=== PATIENT | female | born 1995 | race Caucasian/White ===

== ENCOUNTER 2018-05-12 14:40 | Emergency (ER) | payer OTHER ==
[2018-05-12 16:20] LABS: Urine Bacteria 20-50 /HPF (<20); Urine Culture Reflex Order REFLEXED; Urine Mucus 1+ /HPF (NONE SEEN); Urine RBC <5 /HPF (NONE SEEN)
--- NOTE | 2018-05-12 16:31 | RAD REPORT ---
EXAM DESCRIPTION: US - Transvaginal OB - 05/12/2018 4:24 pm CLINICAL HISTORY: ABD CRAMPING, COMPARISON: No comparisons FINDINGS: A single gestational sac is seen within the uterus. The shape of the sac is within normal limits for gestational age. Within the sac is a single pole with crown-rump length of 9 mm, cor relating to estimated gestational age of 7 weeks 0 days. Estimated date of delivery is 12/29/2018. Heart rate is 166 BPM. The placenta is not yet developed due to early gestational age. The maternal adnexa and ovaries are within normal limits. Normal Doppler blood flow was demonstrated to both ovaries. IMPRESSION: Single live early intrauterine gestation with estimated gestational age of 7 weeks 0 day s, RACHEL 12/29/2018. No unusual or unexpected finding.
[2018-05-12 16:53] LABS: Urine Blood NEGATIVE (NEG); Urine Glucose NEGATIVE (NEG); Urine Protein 1+ (NEG)
--- NOTE | 2018-05-12 17:11 | EDPHYS ---
Physician Documentation [facility] Name: Ramone Quintero Age: 22 yrs Sex: Female : 1995 Arrival Date: 05/12/2018 Time: 14:43 Bed 16 Private MD: ED Physician Sincere Romero HPI: 05/12 19:49 This 22 yrs old Female presents to ER via Ambulatory with complaints of gs Abdominal Pain, unknown wks . 19:49 The patient presents with pelvic pain. Onset: The symptoms/episode began/occurred 2 gs day(s) ago, and became persistent. Modifying factors: The symptoms are alleviated by nothing, the symptoms are aggravated by urinating. Associated signs and symptoms: Pertinent positives: vomiting, Pertinent negatives: fever. Severity of symptoms: At their worst the symptoms were moderate, in the emergency department the symptoms are unchanged. The patient has experienced similar episodes in the past, a few times. 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 - Social history:: Smoking status: Patient/guardian denies using tobacco. - Ebola Screening: : No symptoms or risks identified at this time. ROS: 19:49 All other systems are negative. gs Exam: 19:49 Head/Face: Normocephalic, atraumatic. Eyes: Pupils equal round and reactive to light, gs extra-ocular motions intact. Lids and lashes normal. Conjunctiva and sclera are non-icteric and not injected. Cornea within normal limits. Periorbital areas with no swelling, redness, or edema. ENT: Nares patent. No nasal discharge, no septal abnormalities noted. Tympanic membranes are normal and external auditory canals are clear. Oropharynx with no redness, swelling, or masses, exudates, or evidence of obstruction, uvula midline. Mucous membranes moist. Neck: Trachea midline, no thyromegaly or masses palpated, and no cervical lymphadenopathy. Supple, full range of motion without nuchal rigidity, or vertebral point tenderness. No Meningismus. Chest/axilla: Normal chest wall appearance and motion. Nontender with no deformity. No lesions are appreciated. Cardiovascular: Regular rate and rhythm with a normal S1 and S2. No gallops, murmurs, or rubs. Normal PMI, no JVD. No pulse deficits. Respiratory: Lungs have equal breath sounds bilaterally, clear to auscultation and percussion. No rales, rhonchi or wheezes noted. No increased work of breathing, no retractions or nasal flaring. Abdomen/GI: Soft, non-tender, with normal bowel sounds. No distension or tympany. No guarding or rebound. No evidence of tenderness throughout. Skin: Warm, dry with normal turgor. Normal color with no rashes, no lesions, and no evidence of cellulitis. MS/ Extremity: Pulses equal, no cyanosis. Neurovascular intact. Full, normal range of motion. Neuro: Awake and alert, GCS 15, oriented to person, place, time, and situation. Cranial nerves II-XII grossly intact. Motor strength 5/5 in all extremities. Sensory grossly intact. Cerebellar exam normal. Normal gait. 19:49 Constitutional: The patient appears alert, awake. 19:49 Back: No spinal tenderness. No costovertebral tenderness. Full range of motion. Vital Signs: 15:00 BP 120 / 73; Pulse 89; Resp 16 S; Temp 98.4(O); Pulse Ox 98% on R/A; Weight 62.14 kg aa5 (R); Height 5 ft. 5 in. (165.10 cm) (R); 16:54 BP 122 / 70; Pulse 78; Resp 16; Temp 98.2(O); Pulse Ox 98% on R/A; Pain 3/10; ls4 15:00 Body Mass Index 22.80 (62.14 kg, 165.10 cm) aa5 MDM: 15:27 Patient medically screened. gs 19:49 Differential diagnosis: ectopic , urinary tract infection. Data reviewed: vital signs, nurses notes. Counseling: I had a detailed discussion with the patient and/or guardian regarding: the historical points, exam findings, and any diagnostic results supporting the discharge/admit diagnosis, lab results, radiology results. Response to treatment: the patient's symptoms have markedly improved after treatment, and as a result, I will discharge patient. 05/12 15:05 Order name: Urine Microscopic Only; Complete Time: 16:39 05/12 15:30 Order name: Urine Dipstick--Ancillary (enter results); Complete Time: 19:50 bd 05/12 15:30 Order name: Urine --Ancillary (enter results); Complete Time: 19:50 bd 05/12 15:52 Order name: US Transvaginal Ob; Complete Time: 16:39 05/12 16:23 Order name: Urine Culture [facility] 05/12 15:05 Order name: Urine Test (obtain specimen); Complete Time: 15:27 gs 05/12 15:05 Order name: Urine Dipstick-Ancillary (obtain specimen); Complete Time: 15:27 Administered Medications: 16:54 Not Given (Patient Refused): D5-NS 1000 ml IV at bolus bolus ls4 Disposition: 05/12/18 17:11 Discharged to Home. Impression: Cystitis. - Condition is Stable. - Discharge Instructions: Urinary Tract Infection, Adult. - Prescriptions for Keflex 500 mg Oral Capsule - take 1 capsule by ORAL route every 12 hours for 7 days; 14 capsule. Zofran 4 mg Oral Tablet - take 1 tablet by ORAL route every 12 hours As needed; 20 tablet. - Medication Reconciliation Form, Thank You Letter, Antibiotic Education, Prescription Opioid Use form. - Follow up: Private Physician; When: 1 - 2 days; Reason: Re-evaluation by your physician. Signatures: Dispatcher [employer] [facility] Chantel Khalil RN RN aa5 Sincere Romero MD MD Luann Manuel RN RN ls4 Corrections: (The following items were deleted from the chart) 17:27 17:11 05/12/2018 17:11 Discharged to Home. Impression: Cystitis. Condition is Stable. ls4 Forms are Medication Reconciliation Form, Thank You Letter, Antibiotic Education, Prescription Opioid Use. Follow up: Private Physician; When: 1 - 2 days; Reason: Re-evaluation by your physician. gs
--- NOTE | 2018-05-12 17:11 | ER ---
Nurse's Notes [facility] Name: Ramone Quintero Age: 22 yrs Sex: Female : 1995 Arrival Date: 05/12/2018 Time: 14:43 Bed 16 Private MD: Diagnosis: Cystitis Presentation: 05/12 14:58 Presenting complaint: Patient states: "I found out I was about 3 weeks ago and aa5 my first OB appointment is not until but I started having some lower back pain and lower abdominal pain". Pt also c/o nausea and vomiting, denies vaginal bleeding. Transition of care: patient was not received from another setting of care. Onset of symptoms was May 2018. Risk Assessment: Do you want to hurt yourself or someone else? Patient reports no desire to harm self or others. Initial Sepsis Screen: Does the patient meet any 2 criteria? No. Patient's initial sepsis screen is negative. Does the patient have a suspected source of infection? No. Patient's initial sepsis screen is negative. Care prior to arrival: None. 14:58 Method Of Arrival: Ambulatory aa5 14:58 Acuity: MADELAINE 3 aa5 Triage Assessment: 15:39 General: Appears in no apparent distress. comfortable, Behavior is calm, cooperative. ls4 Pain: Complains of pain in abdomen Pain currently is 3 out of 10 on a pain scale. GI: Abdomen is flat, non-distended, Bowel sounds present X 4 quads. Abd is soft and non tender. 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 - Social history:: Smoking status: Patient/guardian denies using tobacco. - Ebola Screening: : No symptoms or risks identified at this time. Screenin:41 Abuse screen: Denies threats or abuse. Denies injuries from another. Nutritional ls4 screening: No deficits noted. Tuberculosis screening: No symptoms or risk factors identified. Fall Risk None identified. Assessment: 17:25 General: Appears in no apparent distress. Behavior is calm, cooperative. Pain: Denies ls4 pain. Neuro: No deficits noted. Cardiovascular: No deficits noted. Respiratory: No deficits noted. GI: Reports cramps and low back pain. : No deficits noted. Musculoskeletal: No deficits noted. Vital Signs: 15:00 BP 120 / 73; Pulse 89; Resp 16 S; Temp 98.4(O); Pulse Ox 98% on R/A; Weight 62.14 kg aa5 (R); Height 5 ft. 5 in. (165.10 cm) (R); 16:54 BP 122 / 70; Pulse 78; Resp 16; Temp 98.2(O); Pulse Ox 98% on R/A; Pain 3/10; ls4 15:00 Body Mass Index 22.80 (62.14 kg, 165.10 cm) aa5 ED Course: 14:43 Patient arrived in ED. mr 14:59 Triage completed. aa5 15:00 Arm band placed on. aa 15:04 Sincere Romero MD is Attending Physician. 15:07 Luann Manuel, RN is Primary Nurse. ls4 15:41 Patient has correct armband on for positive identification. Bed in low position. Call ls4 light in reach. Side rails up X 1. 15:41 No provider procedures requiring assistance completed. Patient did not have IV access ls4 during this emergency room visit. 16:24 US Transvaginal Ob In Process Unspecified. EDMS Administered Medications: 16:54 Not Given (Patient Refused): D5-NS 1000 ml IV at bolus bolus ls4 Outcome: 17:11 Discharge ordered by . 17:25 Discharged to home ambulatory. ls4 17:25 Condition: stable 17:25 Discharge instructions given to patient, family, Instructed on discharge instructions, follow up and referral plans. medication usage, Demonstrated understanding of instructions, follow-up care, medications, Prescriptions given X 2. 17:27 Patient left the ED. ls4 Signatures: Dispatcher [employer] [facility] Brianna Sheldon RemiChantel, RN RN aa Sincere Romero MD MD Luann Manuel, NORM RN ls4
== END 2018-05-12 17:27 | disposition home or self-care (01) ==
LOC: ER 14:40
DX: O23.11 Infections of bladder in pregnancy, first trimester (principal); N30.90 Cystitis, unspecified without hematuria; Z3A.01 Less than 8 weeks gestation of pregnancy
CPT/HCPCS: 76817; 81003; 81015; 81025; 87086; 87088; 99283

== ENCOUNTER 2021-08-26 08:40 | Emergency (ER) | payer OTHER ==
--- OUTSIDE RECORDS SUMMARY | 2021-08-26 08:44 | XMS REPORT | Continuity of Care Document ---
:1995 Author Organization [facility] t Address [address] [place] [address] Dr. Ravi [address] [place] [id number] Care Team Providers Name Role Phone Unavailable Unavailable Unavailable Problems This patient has no known problems. Allergies, Adverse Reactions, Alerts This patient has no known allergies or adverse reactions. Medications This patient has no known medications. Procedures This patient has no known procedures. Encounters Start End Encounter Admission Attending Care Care Encounter Source Date/Time Date/Time Type Type Clinicians Facility Department ID 2018-12-04 Inpatient [id number] [facility] 09:01:00 2018-08-07 2018-08-07 Outpatient [id number] [facility] 09:00:00 09:00:00 2018-06-19 2018-06-19 Outpatient [id number] [facility] 13:00:00 13:00:00 Results This patient has no known results.
--- NOTE | 2021-08-26 08:56 | ER ---
Nurse's Notes [facility] Name: Ramone Quintero Age: 25 yrs Sex: Female : 1995 Arrival Date: 08/26/2021 Time: 08:43 Bed Waiting Private MD: Diagnosis: Otitis media, unspecified, left ear;Acute sinusitis, unspecified Presentation: 08/26 08:52 Chief complaint: Patient states: L ear pain that began yesterday. Pt reports she has ss had cough/ congestion for the past few days. Tested negative for COVID twice since being ill. Coronavirus screen: Client denies travel out of the [place] in the last 14 days. Ebola Screen: Patient denies exposure to infectious person. Patient denies travel to an Ebola-affected area in the 21 days before illness onset. Initial Sepsis Screen: Does the patient meet any 2 criteria? No. Patient's initial sepsis screen is negative. Does the patient have a suspected source of infection? No. Patient's initial sepsis screen is negative. Risk Assessment: Do you want to hurt yourself or someone else? Patient reports no desire to harm self or others. Onset of symptoms was August 25, 2021. 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 - Social history:: Smoking status: Patient denies any tobacco usage or history of. Screenin:56 Abuse screen: Denies threats or abuse. Denies injuries from another. Nutritional ss screening: No deficits noted. Tuberculosis screening: Never had TB. Fall Risk None identified. Assessment: 08:56 General: Appears uncomfortable, Behavior is calm, cooperative. Pain: Complains of pain ss in left ear Pain currently is 9 out of 10 on a pain scale. Neuro: Farias Agitation-Sedation Scale (RASS): 0 - Alert and Calm Level of Consciousness is awake, alert, obeys commands, Oriented to person, place, time, situation. Cardiovascular: Capillary refill < 3 seconds is brisk in bilateral fingers. Respiratory: Airway is patent Respiratory effort is even, unlabored, Respiratory pattern is regular, symmetrical. Respiratory: Reports cough that is. EENT: Nares are clear. Derm: Skin is intact, is healthy with good turgor, Skin is dry, Skin is pink, warm \T\ dry. normal. Musculoskeletal: Circulation, motion, and sensation intact. Range of motion: intact in all extremities, Swelling absent. 08:57 Reassessment: Patient is alert, oriented x 3, equal unlabored respirations, skin aa5 warm/dry/pink. Vital Signs: 08:52 BP 133 / 84; Pulse 103; Resp 14; Temp 99.2(TE); Pulse Ox 100% on R/A; ss 08:54 Weight 79.38 kg; Pain 10/10; ss ED Course: 08:43 Patient arrived in ED. mr 08:47 Lisa Hess FNP-C [facility]. kb 08:47 Mignon Topete MD is Attending Physician. kb 08:53 Triage completed. ss 08:54 Arm band placed on right wrist. ss 08:56 Jessica Kilgore, NORM is Primary Nurse. ss 08:56 Patient has correct armband on for positive identification. Bed in low position. Call ss light in reach. 09:00 No provider procedures requiring assistance completed. Patient did not have IV access aa5 during this emergency room visit. Administered Medications: No medications were administered Medication: 08:56 VIS not applicable for this client. ss Outcome: 08:55 Discharge ordered by MD. kb 08:57 Discharged to home ambulatory. aa5 08:57 Condition: stable 08:57 Discharge instructions given to patient, Instructed on discharge instructions, follow up and referral plans. medication usage, Demonstrated understanding of instructions, follow-up care, medications, Prescriptions given X 1. 09:00 Patient left the ED. aa5 Signatures: Lisa Hess FNP-C FNP-Ckb Brianna Sheldon, NORM Golden RN aa5 Jessica Kilgore, NORM RN ss
--- NOTE | 2021-08-26 08:56 | EDPHYS ---
Physician Documentation [facility] Name: Ramone Quintero Age: 25 yrs Sex: Female : 1995 Arrival Date: 08/26/2021 Time: 08:43 Bed Waiting Private MD: ED Physician Mignon Topete HPI: 08/26 09:15 This 25 yrs old Female presents to ER via Ambulatory with complaints of Ear Pain, kb Fever, Cough, Nausea. 09:15 The patient presents with drainage, a fullness, pain. The complaints affect the left kb ear. Onset: The symptoms/episode began/occurred 3 day(s) ago. Modifying factors: The symptoms are alleviated by nothing, the symptoms are aggravated by nothing. Associated signs and symptoms: Pertinent positives: fever, cough, rhinorrhea. Severity of symptoms: At their worst the symptoms were moderate in the emergency department the symptoms are unchanged. The patient has not experienced similar symptoms in the past. The patient has not recently seen a physician. Pt states she has had cough, congestion, sinus pressure, runny nose, fever and ear pain. States she is only here to have her ear looked at. . 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 - Social history:: Smoking status: Patient denies any tobacco usage or history of. ROS: 09:14 Cardiovascular: Negative for chest pain, palpitations, and edema. kb 09:14 Constitutional: Positive for fever, malaise. 09:14 ENT: Positive for drainage from ear(s), ear pain, rhinorrhea, sinus congestion. 09:14 Respiratory: Positive for cough. 09:14 All other systems are negative. Exam: 09:14 Constitutional: This is a well developed, well nourished patient who is awake, alert, kb and in no acute distress. Head/Face: Normocephalic, atraumatic. Cardiovascular: Regular rate and rhythm with a normal S1 and S2. No gallops, murmurs, or rubs. No pulse deficits. Respiratory: Respirations even and unlabored. No increased work of breathing. Talking in full sentences Skin: Warm, dry with normal turgor. Normal color. MS/ Extremity: Pulses equal, no cyanosis. Neurovascular intact. Full, normal range of motion. Neuro: Awake and alert, GCS 15, oriented to person, place, time, and situation. Moves all extremities. Normal gait. Psych: Awake, alert, with orientation to person, place and time. Behavior, mood, and affect are within normal limits. 09:14 ENT: External ear(s): are unremarkable, Ear canal(s): are normal, TM's: bulging, on the left, erythema, that is moderate, on the left, fluid levels, on the left, Examination of the other ear shows no obvious abnormality. Vital Signs: 08:52 BP 133 / 84; Pulse 103; Resp 14; Temp 99.2(TE); Pulse Ox 100% on R/A; ss 08:54 Weight 79.38 kg; Pain 10/10; ss MDM: 08:55 Patient medically screened. kb 09:13 Data reviewed: vital signs, nurses notes. Data interpreted: Pulse oximetry: on room air kb is 100 %. Interpretation: normal. Counseling: I had a detailed discussion with the patient and/or guardian regarding: the historical points, exam findings, and any diagnostic results supporting the discharge/admit diagnosis, the need for outpatient follow up, a family practitioner, to return to the emergency department if symptoms worsen or persist or if there are any questions or concerns that arise at home. 09:17 ED course: Offered testing for flu and covid. Pt declined at this time. States she just kb wanted to get her ear checked because the pain was getting wrose. Administered Medications: No medications were administered Disposition Summary: 08/26/21 08:55 Discharge Ordered Location: Home kb Condition: Stable kb Diagnosis - Otitis media, unspecified, left ear kb - Acute sinusitis, unspecified kb Followup: kb - With: Emergency Department - When: As needed - Reason: Worsening of condition Followup: kb - With: Private Physician - When: 2 - 3 days - Reason: Recheck today's complaints, Continuance of care, Re-evaluation by your physician Discharge Instructions: - Discharge Summary Sheet kb - Otitis Media, Adult, [id number] kb - Sinusitis, Adult, [id number] kb Forms: - Medication Reconciliation Form kb - Thank You Letter kb - Antibiotic Education kb - Prescription Opioid Use kb Prescriptions: - Augmentin 875-125 mg Oral Tablet - take 1 tablet by ORAL route every 12 hours for 10 days; 20 tablet; Refills: 0, kb Product Selection Permitted Signatures: Lisa Hess, Jessica Rivera, RN RN ss
[2021-08-26 09:29] VITALS: BP 133/84; TEMP 99.2; O2SAT 100
== END 2021-08-26 09:00 | disposition home or self-care (01) ==
LOC: ER 08:40
DX: H66.92 Otitis media, unspecified, left ear (principal); J01.90 Acute sinusitis, unspecified
CPT/HCPCS: 99282